=== PATIENT | female | born 1940 | race Caucasian/White ===

== ENCOUNTER → 2017-01-23 | Outpatient (CLI) | payer MEDICARE, BC ==
[~2017-01-23] MED LIST: PRINIVIL5 MG PO
== END ==
LOC: MC.RAD 08:54
DX: N63 Unspecified lump in breast (principal)

== ENCOUNTER 2017-02-17 18:20 | Emergency (ER) | payer MEDICARE, BC ==
[~2017-02-17] VITALS: Ht 162.6 cm; Wt 75.0 kg
[2017-02-17 18:23] VITALS: TEMP 101
[2017-02-17 19:05] LABS: BASO % 0.4 % (0.0-2.0); EOS % 0.2 % (0-4.0); GRAN # 9.1 (1.4-6.5); GRAN % 82.4 % (42.2-75.2); HEMATOCRIT 42.7 % (37.0-47.0); HEMOGLOBIN 13.4 g/dl (12.5-16.0); LYMPH # 0.7 (1.2-3.4); LYMPH % 6.2 % (20.0-51.0); MEAN CELL VOLUME 74 fl (80.0-100.0); MEAN CORPUSCULAR HEMOGLOBIN 23 pg (27.0-31.0); MEAN CORPUSCULAR HGB CONC 31 g/dl (33.0-37.0); MEAN PLATELET VOLUME 11.9 fl (7.4-10.4); MONO # 1.1 (0.1-0.6); MONO % 10.3 % (1.7-9.3); PLATELET COUNT 139 K/mm3 (130-400); RED BLOOD COUNT 5.79 M/mm3 (4.10-5.30); REDCELL DISTRIBUTION WIDTH-CV 17.2 % (11.5-14.5); WHITE BLOOD COUNT 11.1 K/mm3 (4.8-10.8)
[2017-02-17 19:06] LABS: INR 1.2 (0.8-3.0); PROTHROMBIN TIME 12.8 SECONDS (9.7-12.8)
[2017-02-17 19:21] LABS: ADJUSTED CALCIUM 9.1 mg/dL (8.4-10.2); BILIRUBIN,TOTAL 1.2 mg/dL (0.0-1.0); C-REACTIVE PROTEIN 3.8 mg/dL (0.0-0.9); CALCIUM 9.1 mg/dL (8.4-10.2); POTASSIUM 3.8 mmol/L (3.4-5.0); TOTAL PROTEIN 7.2 gm/dL (6.4-8.2)
[2017-02-17] MEDS ORDERED: PRINIVIL5 MG PO (20:38)
[2017-02-17 21:14] VITALS: BP 160/90; PULSE 82
== END 2017-02-17 21:19 | disposition home or self-care (01) ==
LOC: COL.ER 18:20
PROVIDERS: Family Medicine
DX: R51 Headache (principal); I10 Essential (primary) hypertension; Z86.73 Personal history of transient ischemic attack (TIA), and cerebral infarction without residual deficits
CPT/HCPCS: J1885; J2550

== ENCOUNTER → 2017-07-05 | Outpatient (CLI) | payer MEDICARE, BC | LOC: MC.RAD 14:22 | DX: Z12.31 Encounter for screening mammogram for malignant neoplasm of breast (principal) ==

== ENCOUNTER 2018-05-16 13:24 | Observation (INO) | payer MEDICARE, BC ==
[~2018-05-16] VITALS: Ht 162.6 cm; Wt 79.5 kg
[2018-05-16 14:15] LABS: BASO % 0.4 % (0.0-2.0); EOS % 0.3 % (0-4.0); GRAN # 7.6 (1.4-6.5); HEMATOCRIT 47.5 % (37.0-47.0); HEMOGLOBIN 14.7 g/dl (12.5-16.0); LYMPH # 1.2 (1.2-3.4); LYMPH % 12.5 % (20.0-51.0); MEAN CELL VOLUME 75 fl (80.0-100.0); MEAN CORPUSCULAR HEMOGLOBIN 23 pg (27.0-31.0); MEAN CORPUSCULAR HGB CONC 31 g/dl (33.0-37.0); MONO # 0.6 (0.1-0.6); MONO % 6.4 % (1.7-9.3); PLATELET COUNT 180 K/mm3 (130-400); RED BLOOD COUNT 6.38 M/mm3 (4.10-5.30)
[2018-05-16 14:26] LABS: ALANINE AMINOTRANSFERASE 31 U/L (9-52); ALBUMIN 4.1 gm/dL (3.5-5.0); ALKALINE PHOSPHATASE 61 U/L (50-136); ANION GAP 11 mmol/L (7-16); AST,SGOT 36 U/L (15-37); BILIRUBIN,TOTAL 0.7 mg/dL (0.0-1.0); BLOOD UREA NITROGEN 23 mg/dL (7-17); CARBON DIOXIDE 23 mmol/L (22-30); CHLORIDE 106 mmol/L (98-107); CREATININE, serum 0.97 mg/dL (0.52-1.25); GLUCOSE 118 mg/dL (74-106); POTASSIUM 4.2 mmol/L (3.4-5.0); SODIUM 141 mmol/L (137-145); TOTAL PROTEIN 7.6 gm/dL (6.4-8.2)
[2018-05-16 14:29] LABS: COLLECTION METHOD CLEAN CATCH
[2018-05-16 14:50] LABS: SQUAMOUS EPITHELIAL 0-2 /hpf; URINE BACTERIA None Seen /hpf; URINE RBC 0-2 /hpf
[2018-05-16 14:51] LABS: PH 6 (5-8); URINE APPEARANCE Clear; URINE BILIRUBIN Negative (NEGATIVE); URINE BLOOD Negative (NEGATIVE); URINE COLOR Yellow; URINE GLUCOSE Negative (NEGATIVE); URINE KETONE Negative (NEGATIVE); URINE LEUKOCYTE ESTERASE Negative (NEGATIVE); URINE NITRATE Negative (NEGATIVE); URINE PROTEIN(semi-quant) Negative (NEGATIVE); URINE UROBILINOGEN Negative (NEGATIVE)
[2018-05-16 14:57] LABS: TROPONIN-I < 0.012 ng/mL (0.000-0.034)
[2018-05-16] MEDS ORDERED: ASPIRIN 81M81 MG/TA2 PO (15:43)
[2018-05-16] MEDS ORDERED: VITAMIN D32000 I1 PO (15:44)
[2018-05-16] MEDS ORDERED: SYNTHROID0.1 MG/TAB PO (15:44)
[2018-05-16] MEDS ORDERED: SYNTHROID0.112 MG/T PO (15:44)
[2018-05-16] MEDS ORDERED: LEVOXYL0.112 MG PO (15:45)
[2018-05-16] MEDS ORDERED: OMEGA-3 FISH1000 MG PO (15:45)
[2018-05-16] MEDS ORDERED: MULTI VITAMINS1 TAB PO (15:45)
[2018-05-16] MEDS ORDERED: ZOCOR 10MG10 MG PO (15:46)
[2018-05-16] MEDS ORDERED: ZOFRAN 4MG T4 MG/TAB PO (15:46)
[2018-05-16] MEDS ORDERED: BLOOD PRESURE MED PO (16:44)
[2018-05-16] MEDS ORDERED: COZAAR 25MG25 MG/TAB PO (17:25)
[2018-05-16 19:12] VITALS: BP 146/70; PULSE 63; TEMP 98.2
[2018-05-16 23:53] VITALS: BP 115/54; PULSE 91; TEMP 98
[2018-05-17 03:45] VITALS: BP 116/57; PULSE 59; TEMP 98.6
[2018-05-17 06:55] LABS: CHOLESTEROL RISK RATIO 3.4
[2018-05-17 07:55] VITALS: BP 142/69; PULSE 60; TEMP 98.5
[2018-05-17 11:48] VITALS: BP 139/70; PULSE 68; TEMP 97.9
[2018-05-17] MEDS ORDERED: APRESOLINE 10MG10 MG PO (14:32)
[2018-05-18 00:43] LABS: FOLATE (FOLIC ACID) 14.4 ng/mL (7.0-31.4)
== END 2018-05-17 15:56 | disposition home or self-care (01) ==
LOC: COL.ER 13:24 → MEDICAL 15:53
PROVIDERS: Emergency Medicine; Physician Assistant
DX: H81.20 Vestibular neuronitis, unspecified ear (principal); I10 Essential (primary) hypertension; E78.5 Hyperlipidemia, unspecified; E03.9 Hypothyroidism, unspecified; I07.1 Rheumatic tricuspid insufficiency; Z86.73 Personal history of transient ischemic attack (TIA), and cerebral infarction without residual deficits; Z87.891 Personal history of nicotine dependence
CPT/HCPCS: A9585; G0378; G8978-GP; G8979-GP; G8987-GO; G8988-GO; J1650; J2405

== ENCOUNTER → 2018-09-28 | Outpatient (CLI) | payer MEDICARE, BC ==
[~2018-09-28] MED LIST changes: +APRESOLINE 10MG10 MG PO; +ASPIRIN 81M81 MG/TA2 PO; +BLOOD PRESURE MED PO; +COZAAR 25MG25 MG/TAB PO; +LEVOXYL0.112 MG PO; +MULTI VITAMINS1 TAB PO; +OMEGA-3 FISH1000 MG PO; +SYNTHROID0.1 MG/TAB PO; +SYNTHROID0.112 MG/T PO; +VITAMIN D32000 I1 PO; +ZOCOR 10MG10 MG PO; +ZOFRAN 4MG T4 MG/TAB PO
== END ==
LOC: MC.RAD 13:14
DX: Z12.31 Encounter for screening mammogram for malignant neoplasm of breast (principal)

== ENCOUNTER → 2019-11-07 | Outpatient (CLI) | payer MEDICARE, BC | LOC: COL.VAS 13:14 | DX: I82.612 Acute embolism and thrombosis of superficial veins of left upper extremity (principal) ==

== ENCOUNTER 2019-11-25 11:07 | Emergency (ER) | payer MEDICARE, BC ==
[~2019-11-25] VITALS: Ht 162.6 cm; Wt 77.3 kg
[2019-11-25] MEDS ORDERED: ADVIL200 MG PO (11:37)
[2019-11-25] MEDS ORDERED: ALEVE 220MG220 MG PO (11:41)
[2019-11-25 12:28] LABS: BASO % 0.6 % (0.0-2.0); EOS # 0.1 (0.0-0.7); EOS % 0.7 % (0-4.0); GRAN # 5.2 (1.4-6.5); GRAN % 73.3 % (42.2-75.2); HEMATOCRIT 46.7 % (37.0-47.0); HEMOGLOBIN 14.3 g/dl (12.5-16.0); LYMPH # 1.2 (1.2-3.4); LYMPH % 16.9 % (20.0-51.0); MEAN CELL VOLUME 75 fl (80.0-100.0); MEAN CORPUSCULAR HEMOGLOBIN 23 pg (27.0-31.0); MEAN CORPUSCULAR HGB CONC 31 g/dl (33.0-37.0); MONO # 0.6 (0.1-0.6); MONO % 8.1 % (1.7-9.3); PLATELET COUNT 181 K/mm3 (130-400); RED BLOOD COUNT 6.19 M/mm3 (4.10-5.30); REDCELL DISTRIBUTION WIDTH-CV 18.6 % (11.5-14.5)
[2019-11-25 12:30] LABS: ALBUMIN 4.1 gm/dL (3.5-5.0); BILIRUBIN,TOTAL 0.6 mg/dL (0.0-1.0); CREATININE, serum 0.99 (0.52-1.25); POTASSIUM 4.4 mmol/L (3.4-5.0); TOTAL PROTEIN 7.5 gm/dL (6.4-8.2)
[2019-11-25 13:31] VITALS: BP 145/68; PULSE 62; TEMP 97.3
[2019-11-25] MEDS ORDERED: MICROZIDE12.5 MG PO (13:37)
== END 2019-11-25 13:44 | disposition home or self-care (01) ==
LOC: COL.ER 11:07
PROVIDERS: Emergency Medicine
DX: I10 Essential (primary) hypertension (principal); E78.5 Hyperlipidemia, unspecified; E03.9 Hypothyroidism, unspecified; Z87.891 Personal history of nicotine dependence; Z98.51 Tubal ligation status; Z79.82 Long term (current) use of aspirin

== ENCOUNTER 2020-02-14 14:22 | Emergency (ER) | payer MEDICARE, BC ==
[~2020-02-14] VITALS: Ht 162.6 cm; Wt 78.2 kg
[~2020-02-14 14:22] MED LIST changes: +ADVIL200 MG PO; +ALEVE 220MG220 MG PO; +MICROZIDE12.5 MG PO
[2020-02-14 14:31] VITALS: TEMP 97.9
[2020-02-14] MEDS ORDERED: TYLENOL 325MG325 MG PO (14:51)
[2020-02-14 15:34] VITALS: BP 123/76; PULSE 67
== END 2020-02-14 15:33 | disposition home or self-care (01) ==
LOC: COL.ER 14:22
DX: S80.02XA Contusion of left knee, initial encounter (principal); I10 Essential (primary) hypertension; E03.9 Hypothyroidism, unspecified; Z79.82 Long term (current) use of aspirin; W10.9XXA Fall (on) (from) unspecified stairs and steps, initial encounter; Y92.009 Unspecified place in unspecified non-institutional (private) residence as the place of occurrence of the external cause

== ENCOUNTER 2022-05-21 09:48 | Emergency (ER) | payer MEDICARE, BC ==
[~2022-05-21] VITALS: Ht 162.6 cm; Wt 79.5 kg
[~2022-05-21 09:48] MED LIST changes: +TYLENOL 325MG325 MG PO
[2022-05-21 09:55] VITALS: TEMP 97.2
[2022-05-21 10:23] LABS: BASO % 0.5 % (0.0-2.0); EOS # 0.1 K/mm3 (0.0-0.7); GRAN # 3.8 K/mm3 (1.4-6.5); GRAN % 60.4 % (42.2-75.2); HEMATOCRIT 46.5 % (37.0-47.0); HEMOGLOBIN 14.6 g/dl (12.5-16.0); LYMPH # 1.7 K/mm3 (1.2-3.4); LYMPH % 27.2 % (20.0-51.0); MEAN CELL VOLUME 73 fl (80.0-100.0); MEAN CORPUSCULAR HEMOGLOBIN 23 pg (27-31); MEAN CORPUSCULAR HGB CONC 31 g/dl (33.0-37.0); MONO # 0.6 K/mm3 (0.1-0.6); MONO % 9.6 % (1.7-9.3); PLATELET COUNT 179 K/mm3 (130-400); REDCELL DISTRIBUTION WIDTH-CV 18.6 % (11.5-14.5)
[2022-05-21 10:45] LABS: ALBUMIN 3.7 gm/dL (3.4-4.8); BILIRUBIN,TOTAL 0.8 mg/dL (0.2-1.2); CALCIUM 10.1 mg/dL (8.4-10.2); CREATININE, serum 1.03 mg/dL (0.57-1.11); POTASSIUM 3.9 mmol/L (3.5-4.5); TOTAL PROTEIN 6.9 gm/dL (6.2-8.1)
[2022-05-21 10:51] LABS: TROPONIN-I 0.013 ng/mL (0.00-0.033)
[2022-05-21 11:47] LABS: COLLECTION METHOD CLEAN CATCH
[2022-05-21 12:18] LABS: SQUAMOUS EPITHELIAL None Seen /hpf (0-10); URINE BACTERIA None Seen /hpf (NONE SEEN); URINE RBC None Seen /hpf (0-2)
[2022-05-21 12:20] LABS: URINE APPEARANCE Clear (CLEAR/HAZY); URINE COLOR Yellow (YELLOW)
[2022-05-21 12:21] LABS: URINE BLOOD Negative (NEGATIVE); URINE GLUCOSE Negative (NEGATIVE); URINE KETONE Negative (NEGATIVE); URINE NITRATE Negative (NEGATIVE); URINE PROTEIN(semi-quant) Negative (NEGATIVE); URINE UROBILINOGEN 0.2 E.U/dL (0.2-1.0)
[2022-05-21 12:45] VITALS: BP 163/82; PULSE 61
== END 2022-05-21 12:50 | disposition home or self-care (01) ==
LOC: COL.ER 09:48
PROVIDERS: Nurse Practitioner
DX: I10 Essential (primary) hypertension (principal)

== ENCOUNTER 2022-06-01 18:39 | Emergency (ER) | payer MEDICARE, BC ==
[~2022-06-01] VITALS: Ht 162.6 cm; Wt 77.3 kg
[2022-06-01 18:44] VITALS: TEMP 97.8
[2022-06-01 19:08] LABS: BASO # 0.1 K/mm3 (0.0-0.2); BASO % 0.5 % (0.0-2.0); EOS # 0.2 K/mm3 (0.0-0.7); EOS % 1.6 % (0.0-4.0); GRAN # 6.7 K/mm3 (1.4-6.5); GRAN % 69.2 % (42.2-75.2); HEMATOCRIT 46.2 % (37.0-47.0); HEMOGLOBIN 14.4 g/dl (12.5-16.0); LYMPH % 20.4 % (20.0-51.0); MEAN CELL VOLUME 73 fl (80.0-100.0); MEAN CORPUSCULAR HEMOGLOBIN 23 pg (27-31); MEAN CORPUSCULAR HGB CONC 31 g/dl (33.0-37.0); MONO # 0.8 K/mm3 (0.1-0.6); PLATELET COUNT 180 K/mm3 (130-400); RED BLOOD COUNT 6.37 M/mm3 (4.10-5.30); REDCELL DISTRIBUTION WIDTH-CV 19.4 % (11.5-14.5)
[2022-06-01 19:29] LABS: ALBUMIN 3.9 gm/dL (3.4-4.8); BILIRUBIN,TOTAL 0.6 mg/dL (0.2-1.2); C-REACTIVE PROTEIN 0.29 mg/dL (0.00-0.50); CALCIUM 10.5 mg/dL (8.4-10.2); CREATININE, serum 1.18 mg/dL (0.57-1.11); TOTAL PROTEIN 7.1 gm/dL (6.2-8.1)
[2022-06-01] MEDS ORDERED: PHENERGAN 25 TA25 MG PO (20:15)
[2022-06-01] MEDS ORDERED: ANTIVERT 25MG25 MG PO (20:15)
[2022-06-01 20:57] VITALS: BP 161/89; PULSE 84
== END 2022-06-01 20:57 | disposition home or self-care (01) ==
LOC: COL.ER 18:39
PROVIDERS: Emergency Medicine
DX: R42 Dizziness and giddiness (principal); R11.2 Nausea with vomiting, unspecified
CPT/HCPCS: J2405; J2550; J7030